=== PATIENT | female | born 1970 | race Caucasian/White ===

== ENCOUNTER 2017-02-22 00:15 | Emergency (ER) | payer SELFPAY ==
[2017-02-22 00:24] VITALS: BP 129/81
--- NOTE | 2017-02-22 01:08 | ER Document Report ---
HPI - HPI Pain Level: 5 - REPRODUCTIVE LMP: na - DERM Skin Color: Normal Past Medical History - Social History Patient has suicidal ideation: No Patient has homicidal ideation: No Renal/ Medical History: Denies: Hx Peritoneal Dialysis Vertical Provider Document - INFECTION CONTROL TRAVEL OUTSIDE OF THE [place] IN LAST 30 DAYS: No - RESPIRATORY O2 Sat by Pulse Oximetry: 99 Course - Vital Signs Vital signs: Temp Pulse Resp BP Pulse Ox 97.7 F 116 H 18 129/81 H 99 02/22/17 00:19 02/22/17 00:19 02/22/17 00:19 02/22/17 00:02/22/17 00:19 - Diagnostic Test Radiology reviewed: Image reviewed, Reports reviewed - Diagnostic report text EXAM DESCRIPTION: KNEE RIGHT 4 VIEWS COMPLETED DATE/TIME: 2016 12:40 am REASON FOR STUDY: knee pain, fell yesterday, hx surgery COMPARISON: None. NUMBER OF VIEWS: Four views. TECHNIQUE: AP, lateral, and both oblique radiographic images acquired of the right knee. An additional sunrise view was obtained. LIMITATIONS: None. FINDINGS: MINERALIZATION: Normal. BONES: No acute fracture or dislocation. No worrisome bone lesions. JOINT: No effusion. SOFT TISSUES: No soft tissue swelling. No radio-opaque foreign body. OTHER: No other significant finding. TECHNICAL DOCUMENTATION: JOB ID: [id number]- All Rights Reserved RAD/KNEE RIGHT 4 VIEWS IMPRESSION: NEGATIVE STUDY OF THE RIGHT KNEE. NO RADIOGRAPHIC EVIDENCE OF ACUTE INJURY
--- NOTE | 2017-02-22 01:14 | ER Document Report ---
HPI - HPI Patient complains to provider of: right knee pain Onset: Yesterday Onset/Duration: Sudden Severity: Severe Pain Level: 5 Context: Patient presents emergency department with complaints of right knee pain. She reports she fell Yesterday onto Both Knees. Patient Reports History of Surgery to the Right Knee 20 Years Ago. Associated Symptoms: None Exacerbated by: Denies Relieved by: Denies Similar symptoms previously: No Recently seen / treated by doctor: No - REPRODUCTIVE LMP: na - DERM Skin Color: Normal <LINDA BULLOCK - Last Filed: 02/22/17 01:20> Past Medical History - General Information source: Patient - Social History Smoking Status: Current Every Day Smoker Cigarette use (# per day): Yes Frequency of alcohol use: None Drug Abuse: None Lives with: Family Family History: None Patient has suicidal ideation: No Patient has homicidal ideation: No Pulmonary Medical History: Reports: Hx Asthma Renal/ Medical History: Denies: Hx Peritoneal Dialysis Past Surgical History: Reports: Hx Orthopedic Surgery <LINDA BULLOCK - Last Filed: 02/22/17 01:20> Vertical Provider Document - CONSTITUTIONAL Agree With Documented VS: Yes Exam Limitations: No Limitations General Appearance: WD/WN, No Apparent Distress - INFECTION CONTROL TRAVEL OUTSIDE OF THE [place] IN LAST 30 DAYS: No - HEENT HEENT: Atraumatic, Normocephalic, PERRLA - NECK Neck: Supple - RESPIRATORY Respiratory: Breath Sounds Normal, No Respiratory Distress O2 Sat by Pulse Oximetry: 99 - MUSCULOSKELETAL/EXTREMETIES Musculoskeletal/Extremeties: MAEW, FROM, Tender - right knee ttp, no obvious deformity, small healing abrasion noted, no open wounds - NEURO Level of Consciousness: Awake, Alert, Appropriate Motor/Sensory: No Motor Deficit - DERM Integumentary: Warm, Dry Adult Front & Back Diagram: 1 - c/o pain <LINDA BULLOCK - Last Filed: 02/22/17 01:20> Course - Vital Signs Vital signs: Temp Pulse Resp BP Pulse Ox 97.7 F 116 H 18 129/81 H 99 02/22/17 00:19 02/22/17 00:19 02/22/17 00:19 02/22/17 00:19 02/22/17 01:14 <AVERY HERNANDEZ - Last Filed: 02/22/17 01:15> - Re-evaluation Re-evalutation: 02/22/17 01:18 Xray negative. [place] controlled substance reporting system reviewed and noted that patient received 120 oxycodone in August from a provider in [place]. I asked patient pmh regarding any recent surgeries or traumas or chronic pain issues and she denied. Male at her side became very irritated and upset when I offered her Motrin and instructed her on ice packs. He stated they would go somewhere else. - Vital Signs Vital signs: Temp Pulse Resp BP Pulse Ox 97.7 F 116 H 18 129/81 H 99 02/22/17 00:19 02/22/17 00:19 02/22/17 00:19 02/22/17 00:19 02/22/17 01:08 <LINDA BULLOCK - Last Filed: 02/22/17 01:20> Discharge <AVERY HERNANDEZ - Last Filed: 02/22/17 01:15> <LINDA BULLOCK - Last Filed: 02/22/17 01:20> - Discharge Clinical Impression: Knee pain, right, Elevated blood pressure reading Condition: Stable Disposition: HOME, SELF-CARE Instructions: Ice & Elevation ([facility]) Additional Instructions: *You have been evaluated for knee pain *Rest/Ice packs to the knee *Follow up with a primary care provider for recheck within one week *Take ibuprofen as indicated *Return to ED for worsening condition, changes, needs Monitor your blood pressure. Your blood pressure was elevated today. This may be because you were anxious, in pain or because you need medication. It is important to follow up with your primary care provider for full evaluation. Forms: Elevated Blood Pressure
== END 2017-02-22 01:18 | disposition home or self-care (01) ==
LOC: ER 00:15
DX: M25.561 Pain in right knee (principal); R03.0 Elevated blood-pressure reading, without diagnosis of hypertension; F17.210 Nicotine dependence, cigarettes, uncomplicated; W18.30XA Fall on same level, unspecified, initial encounter
CPT/HCPCS: 99283

== ENCOUNTER 2017-04-06 09:54 | Emergency (ER) | payer MEDICAID ==
[2017-04-06] MEDS ORDERED: OXYCODONE-ACETAMINOPHEN 5-325 MG TABLET PO ONE (11:21)
[2017-04-06] MEDS ORDERED: ONDANSETRON 4 MG TAB.RAPDIS PO ONE (11:21)
--- NOTE | 2017-04-06 11:52 | ER Document Report ---
HPI - HPI Patient complains to provider of: right sided back pain Onset: Yesterday Onset/Duration: Sudden Quality of pain: Throbbing Severity: Severe Pain Level: 5 Context: Patient states she bent over yesterday to pick something up and began experiencing pain in her right lower back radiating down her right leg. States she has had sciatica before and this feels the same way. She denies loss of control of bowels or bladder. Associated Symptoms: None Exacerbated by: Standing, Movement Relieved by: Denies Similar symptoms previously: Yes Recently seen / treated by doctor: No - ROS ROS below otherwise negative: Yes Systems Reviewed and Negative: Yes All other systems reviewed and negative - CONSTITUTIONAL Constitutional: DENIES: Fever - EENT EENT: DENIES: Congestion - NEURO Neurology: DENIES: Headache - CARDIOVASCULAR Cardiovascular: DENIES: Chest pain - RESPIRATORY Respiratory: DENIES: Trouble Breathing - GASTROINTESTINAL Gastrointestinal: DENIES: Abdominal Pain - URINARY Urinary: DENIES: Dysuria - REPRODUCTIVE LMP: n/a Reproductive: DENIES: : - MUSCULOSKELETAL Musculoskeletal: REPORTS: Back Pain. DENIES: Extremity pain - DERM Skin Color: Normal Skin Problems: None Past Medical History - General Information source: Patient - Social History Smoking Status: Current Every Day Smoker Chew tobacco use (# tins/day): No Frequency of alcohol use: None Drug Abuse: None Lives with: Family Family History: None Pulmonary Medical History: Reports: Hx Asthma Renal/ Medical History: Denies: Hx Peritoneal Dialysis Psychiatric Medical History: Reports: Hx Depression Past Surgical History: Reports: Hx Gynecologic Surgery, Hx Hysterectomy, Hx Orthopedic Surgery - Immunizations Hx Diphtheria, Pertussis, Tetanus Vaccination: No Vertical Provider Document - CONSTITUTIONAL Agree With Documented VS: Yes Exam Limitations: No Limitations General Appearance: WD/WN, No Apparent Distress - INFECTION CONTROL TRAVEL OUTSIDE OF THE [place] IN LAST 30 DAYS: No - HEENT HEENT: Atraumatic, Normocephalic - RESPIRATORY Respiratory: Breath Sounds Normal, No Respiratory Distress O2 Sat by Pulse Oximetry: 99 - CARDIOVASCULAR Cardiovascular: Regular Rate, Regular Rhythm - GI/ABDOMEN Gastrointestinal: Abdomen Soft, Abdomen Non-Tender, Normal Bowel Sounds - BACK Notes: Nontender lumbar spine, but right-sided lumbar paraspinal muscles very tender to touch. Tender over right buttock which causes pain radiation down to right knee. Pain reproduced with light leg raise. No pain with left leg raise. - MUSCULOSKELETAL/EXTREMETIES Musculoskeletal/Extremeties: No Edema - NEURO Level of Consciousness: Awake, Alert, Appropriate - DERM Integumentary: Warm, Dry Course - Vital Signs Vital signs: Temp Pulse Resp BP Pulse Ox 97.9 F 104 H 20 148/112 H 99 04/06/17 10:22 04/06/17 10:22 04/06/17 10:22 04/06/17 10:22 04/06/17 10:22 Discharge - Discharge Clinical Impression: Low back pain with right-sided sciatica Qualifiers: Chronicity: acute Back pain laterality: right Qualified Code(s): M54.41 - Lumbago with sciatica, right side Condition: Good Disposition: HOME, SELF-CARE Instructions: Ice Packs ([facility]), Oral Narcotic Medication ([facility]), Warm Packs ([facility]) , Low Back Pain ([facility]) Additional Instructions: Meds as prescribed Ice or heat packs to back [id number] Motrin 3 times a day Follow-up with your doctor next week for recheck No heavy lifting, rest as much as possible Return as needed Prescriptions: Cyclobenzaprine HCl [Flexeril 5 mg Tablet] 5 mg PO TID #15 tablet Oxycodone HCl/Acetaminophen [Percocet 5-325 mg Tablet] 1 - 2 tab PO ASDIR PRN # 15 tablet PRN Reason:
[2017-04-06 12:19] VITALS: BP 127/96
== END 2017-04-06 12:15 | disposition home or self-care (01) ==
LOC: ER 09:54
DX: M54.41 Lumbago with sciatica, right side (principal); F17.200 Nicotine dependence, unspecified, uncomplicated; J45.909 Unspecified asthma, uncomplicated
CPT/HCPCS: 99283; S0119

== ENCOUNTER 2017-05-05 11:59 | Emergency (ER) | payer MEDICAID ==
[2017-05-05 12:06] VITALS: BP 151/101
[2017-05-05] MEDS ORDERED: OXYCODONE-ACETAMINOPHEN 5-325 MG TABLET PO ONE (12:37)
--- NOTE | 2017-05-05 12:39 | ER Document Report ---
ED Medical Screen (RME) - General Chief Complaint: Abscess Stated Complaint: ABSCESS Time Seen by Provider: 05/05/17 12:33 Mode of Arrival: Ambulatory Information source: Patient Notes: 46-year-old female presents with perianal pain today. She states she has pain while she has a bowel movement. Denies any fever, chills, nausea vomiting. She denies any illnesses. She denies any blood in the stool. Allergies: Naproxen (she states she is taking Aleve), sulfa and Toradol. Medication: Synthroid, atenolol, Prilosec, Protonix Dear physician: Dr. Daly Past medical history: Hypothyroidism, GERD, hypertension, MRSA TRAVEL OUTSIDE OF THE [place] IN LAST 30 DAYS: No - HPI Onset: Yesterday Onset/Duration: Gradual Quality of pain: Dull Severity: Moderate Pain Level: 3 Associated Symptoms: denies: Chills, Fever Exacerbated by: Sitting, Other Relieved by: Standing Similar symptoms previously: No Recently seen / treated by doctor: No - Related Data Smoking: Cigarettes Frequency of alcohol use: None Drug Abuse: None Allergies/Adverse Reactions: ketorolac [From Toradol] Allergy (Verified 05/05/17 12:04) naproxen [From Naprosyn] Allergy (Verified 05/05/17 12:04) Sulfa (Sulfonamide Antibiotics) Allergy (Verified 05/05/17 12:04) Past Medical History - General Information source: Patient - Social History Cigarette use (# per day): Yes - 1ppd Frequency of alcohol use: None Drug Abuse: None Lives with: Spouse/Significant other Family history: None - Past Medical History Cardiac Medical History: Reports: Hx Hypertension Pulmonary Medical History: Reports: Hx Asthma EENT Medical History: Reports: None Neurological Medical History: Reports: None Endocrine Medical History: Reports: None Renal/ Medical History: Reports: None. Denies: Hx Peritoneal Dialysis Psychiatric Medical History: Reports: Hx Depression Past Surgical History: Reports: Hx Gynecologic Surgery, Hx Hysterectomy, Hx Orthopedic Surgery - Immunizations Hx Diphtheria, Pertussis, Tetanus Vaccination: No Review of Systems - Review of Systems Constitutional: denies: Chills, Fever EENT: No symptoms reported Cardiovascular: No symptoms reported Respiratory: No symptoms reported Gastrointestinal: See HPI Genitourinary: No symptoms reported Female Genitourinary: No symptoms reported Musculoskeletal: No symptoms reported Skin: No symptoms reported Hematologic/Lymphatic: No symptoms reported Neurological/Psychological: No symptoms reported Physical Exam - Vital signs Vitals: Temp Pulse Resp BP Pulse Ox 98.4 F 77 16 151/101 H 98 05/05/17 12:04 05/05/17 12:04 05/05/17 12:04 05/05/17 12:04 05/05/17 12:04 Notes: Physical exam: GENERAL: A 6-year-old female, alert and oriented 3, no acute distress nontoxic- appearing HEAD: Atraumatic, normocephalic. EYES: Pupils equal round and reactive to light, extraocular movements intact, sclera anicteric, conjunctiva are normal. ENT: Moist mucous membranes. NECK: Normal range of motion, supple without lymphadenopathy or JVD. LUNGS: Breath sounds clear to auscultation bilaterally and equal. No wheezes rales or rhonchi. HEART: Regular rate and rhythm without murmurs, rubs or gallops. ABDOMEN: Soft, normoactive bowel sounds. No tenderness to palpation. No guarding, no rebound. No masses appreciated. RECTAL: Performed with the triage nurse present: No evidence of perirectal abscesses. No fluctuance, no erythema, no pussy drainage. Patient does have a small, tender hemorrhoid to palpation. There is no fluctuance. It may be thrombosed, but it is small EXTREMITIES: Normal range of motion, no pitting or edema. No clubbing or cyanosis. NEUROLOGICAL: Cranial nerves II through XII grossly intact. Normal speech, normal gait. PSYCH: Normal mood, normal affect. SKIN: Warm, Dry, normal turgor, no rashes or lesions noted. Course - Re-evaluation Re-evalutation: 05/05/17 12:45 Note: At this point, I do not see any evidence of a perirectal abscess. The buttocks is otherwise clear. However, she does have a tender, nonfluctuant hemorrhoid. It is probably a thrombosed hemorrhoid, it does look like it recently drained. It is small. I have offered the patient an incision and drainage but she would like to wait at this time. Given that the lesion is small at this point, I think conservative treatment with follow-up in the surgical clinic in the next week is acceptable plan. She is nontoxic-appearing , is afebrile and has not had any fever or chills. I do not see any evidence of infection at this time. - Vital Signs Vital signs: Temp Pulse Resp BP Pulse Ox 98.4 F 77 16 151/101 H 98 05/05/17 12:04 05/05/17 12:04 05/05/17 12:04 05/05/17 12:04 05/05/17 12:04 Doctor's Discharge - Discharge Clinical Impression: Thrombosed hemorrhoids Condition: Stable Disposition: HOME, SELF-CARE Instructions: Oral Narcotic Medication ([facility]), Hemorrhoids ([facility]) Additional Instructions: Rec: Make sure you take a stool softener to avoid constipation disease constipation will make it worse). Place cool tucks or ice on hemorrhoid several times a day. Pain medicine only when needed. The emergency room for worsening pain, if you start having any fever or chills or any concerns or getting worse. I left the number for the surgical clinic here at the Hospital: Call today and schedule the next available appointment. Tell them you are in the emergency room and the ER doctor wanted to seen within the next week for thrombosed hemorrhoid. Prescriptions: Docusate Sodium [Colace 100 mg Capsule] 100 mg PO DAILY #30 capsule Hydrocortisone Acetate [Anusol Hc 25 mg Supp.rect] 1 supp.rect NC BID #14 supp.rect Oxycodone HCl/Acetaminophen [Percocet 5-325 mg Tablet] 1 - 2 tab PO ASDIR PRN # 15 tablet PRN Reason: Referrals: NATHALY NASH MD [ACTIVE STAFF] - Follow up as needed (The number for the surgery clinic: call Today. tell them you were in the emergency room and the ER doctor wanted to see him in the next week for thrombosed hemorrhoid)
== END 2017-05-05 12:50 | disposition home or self-care (01) ==
LOC: ER 11:59
DX: K64.5 Perianal venous thrombosis (principal); E03.9 Hypothyroidism, unspecified; K21.9 Gastro-esophageal reflux disease without esophagitis; I10 Essential (primary) hypertension; F17.210 Nicotine dependence, cigarettes, uncomplicated
CPT/HCPCS: 99282

== ENCOUNTER 2017-05-16 13:29 | Emergency (ER) | payer MEDICAID ==
[2017-05-16 13:37] VITALS: BP 106/67
--- NOTE | 2017-05-16 14:48 | RADIOLOGY REPORT (SQ) ---
EXAM DESCRIPTION: L SPINE WHOLE COMPLETED DATE/TIME: 05/16/2017 2:36 pm REASON FOR STUDY: Back pain s/p fall COMPARISON: None. NUMBER OF VIEWS: Five views including obliques. TECHNIQUE: AP, lateral, oblique, and sacral radiographic images acquired of the lumbar spine. LIMITATIONS: None. FINDINGS: MINERALIZATION: Normal. SEGMENTATION: Normal. No transitional anatomy. ALIGNMENT: Normal. VERTEBRAE: Maintained height. No fracture or worrisome bone lesion. DISCS: Preserved height. No significant osteophytes or end plate irregularity. POSTERIOR ELEMENTS: Pedicles and facets are intact. No pars defect or posterior arch defects. HARDWARE: None in the spine. PARASPINAL SOFT TISSUES: Normal. PELVIS: Intact as visualized. No fractures or worrisome bone lesions. SI joints intact. OTHER: No other significant finding. IMPRESSION: NORMAL 5 VIEW LUMBAR SPINE. TECHNICAL DOCUMENTATION: JOB ID: [id number] [employer]- All Rights Reserved
--- NOTE | 2017-05-16 14:48 | RADIOLOGY REPORT (SQ) ---
EXAM DESCRIPTION: T SPINE AP/LAT COMPLETED DATE/TIME: 05/16/2017 2:36 pm REASON FOR STUDY: Back pain s/p fall COMPARISON: None. NUMBER OF VIEWS: Two views. TECHNIQUE: AP and lateral radiographic images acquired of the thoracic spine. LIMITATIONS: None. FINDINGS: MINERALIZATION: Normal. ALIGNMENT: Normal. No scoliosis. VERTEBRAE: No fracture or bone lesion. Maintained height, normal segmentation. DISCS: No significant loss of height or significant narrowing. No large osteophytes. HARDWARE: None in the spine. MEDIASTINUM AND SOFT TISSUES: Normal heart size and aortic contour. No soft tissue abnormality. VISUALIZED LUNG PEARSON: Clear. OTHER: No other significant finding. IMPRESSION: NO SIGNIFICANT RADIOGRAPHIC FINDING IN THE THORACIC SPINE. TECHNICAL DOCUMENTATION: JOB ID: [id number] [employer]- All Rights Reserved
[2017-05-16] MEDS ORDERED: LIDOCAINE 5% (700 MG) TRANSDERMAL ADH..PATCH TP ONE (14:52)
--- NOTE | 2017-05-16 15:00 | ER Document Report ---
HPI - HPI Pain Level: 2 Notes: Patient is a 46-year-old female presents to the ED complaining of thoracic and low back pain status post fall yesterday. Pt arrived by EMS. Patient states that her leg slipped out from under her and she fell on her butt on the sidewalk. Denies any head/neck injury. Patient states that she has been having low back pain and pain into her bilateral lower extremities since then. She does have a history of sciatica. Patient states the pain feels like spasming. Patient also being treated for hypothyroid, bipolar, depression/ anxiety and schizoaffective disorder. Patient states that she has been unable to sit still. There is no one position that helps her pain, and being in one position too long worsens the pain. Patient still eating drink without any problems. Denies any loss of control of bowel/bladder. Denies any fever, headaches, URI, sore throat, chest pains, palpitation, syncope, cough, wheeze, shortness of breath, dyspnea, abdominal pain, nausea/vomiting, melena, hematochezia, dysuria, urinary retention, hematuria, focal muscle weakness/ paralysis, rash, or seizure. No history of diabetes or IV drug use. - ROS Notes: REVIEW OF SYSTEMS: CONSTITUTIONAL : Denies fever, chills, or sweats. Denies recent illness. EENT: Denies eye, ear, throat, or mouth pain or symptoms. Denies nasal or sinus congestion or discharge. Denies throat, tongue, or mouth swelling or difficulty swallowing. CARDIOVASCULAR: Denies chest pain. Denies palpitations or racing or irregular heart beat. Denies ankle edema. RESPIRATORY: Denies cough, cold, or chest congestion. Denies shortness of breath, difficulty breathing, or wheezing. GASTROINTESTINAL: Denies abdominal pain or distention. Denies nausea, vomiting , or diarrhea. Denies blood in vomitus, stools, or per rectum. Denies black, tarry stools. Denies constipation. GENITOURINARY: Denies difficulty urinating, painful urination, burning, frequency, blood in urine, or discharge. MUSCULOSKELETAL: see hpi SKIN: Denies rash, lesions or sores. NEUROLOGICAL: Denies confusion or altered mental status. Denies passing out or loss of consciousness. Denies dizziness or lightheadedness. Denies headache. Denies weakness or paralysis or loss of use of either side. Denies problems with gait or speech. Denies sensory loss, numbness, or tingling. Denies seizures. ALL OTHER SYSTEMS REVIEWED AND NEGATIVE. Dictation was performed using [employer] voice recognition software - CARDIOVASCULAR Cardiovascular: DENIES: Chest pain - REPRODUCTIVE Reproductive: DENIES: : - DERM Skin Color: Normal Past Medical History - Social History Smoking Status: Current Every Day Smoker Chew tobacco use (# tins/day): No Frequency of alcohol use: None Drug Abuse: None Family History: None Patient has suicidal ideation: No Patient has homicidal ideation: No - Past Medical History Cardiac Medical History: Reports: Hx Hypertension Pulmonary Medical History: Reports: Hx Asthma Renal/ Medical History: Denies: Hx Peritoneal Dialysis GI Medical History: Reports: Hx Ulcer - x 2 Psychiatric Medical History: Reports: Hx Bipolar Disorder, Hx Depression Past Surgical History: Reports: Hx Gynecologic Surgery, Hx Hysterectomy, Hx Orthopedic Surgery, Hx Urinary Tract Surgery - bladder stimulator insert & removal, mesh - Immunizations Hx Diphtheria, Pertussis, Tetanus Vaccination: No Vertical Provider Document - CONSTITUTIONAL Notes: PHYSICAL EXAMINATION: GENERAL: Well-appearing, well-nourished and in no acute distress. Pt able to lie, sit with legs straight and bent without difficulty. HEAD: Atraumatic, normocephalic. NECK: Normal range of motion, supple without lymphadenopathy. No rigidity. LUNGS: Breath sounds clear to auscultation bilaterally and equal. No wheezes rales or rhonchi. HEART: Regular rate and rhythm without murmurs, rubs, gallops. ABDOMEN: Soft, nontender, nondistended abdomen. No guarding, no rebound. No masses appreciated. Normal bowel sounds present. No CVA tenderness bilaterally. Sphincter tone intact. Musculoskeletal: FROM to passive/active to LE's b/l. Strength 5+/5. SLR negative to the left, mildly positive near total extension at the knee. Back: No evidence of trauma with any abrasion, laceration, deformity, or ecchymosis noted. + tenderness to the thoracic spine near T-7-10 on the rt side along with L-spine tenderness. Extremities: No cyanosis, clubbing, or edema b/l. Peripheral pulses 2+. Capillary refill less than 3 seconds. NEUROLOGICAL: Cranial nerves grossly intact. Normal speech, normal gait. Normal sensory, motor exams. 1+ reflexes b/l to LE's. PSYCH: Normal mood, normal affect. SKIN: Warm, Dry, normal turgor, no rashes or lesions noted. - INFECTION CONTROL TRAVEL OUTSIDE OF THE [place] IN LAST 30 DAYS: No - RESPIRATORY O2 Sat by Pulse Oximetry: 100 Course - Re-evaluation Re-evalutation: 05/16/17 15:03 Patient is an afebrile, well-hydrated, 46-year-old female who presents to the ED complaining of thoracic and low back pain status post fall on her buttocks yesterday, suspect soft tissue pain. Vitals are stable. PE is otherwise unremarkable for any signs of acute trauma. T-spine and L-spine x-rays were unremarkable for any acute fracture or dislocation. Patient is noted to be allergic to Toradol and naproxen. Lidoderm applied topically today. I will send her home with a steroid tapering dose. Recommend conservative measures for symptoms. Recheck with her PCM in 2-3 days. Consider consult with orthopedics, chiropractors, physical therapy as well. Return to the ED with any worsening/concerning symptoms otherwise as needed. Low suspicion for any expanding or ruptured abdominal aortic aneurysm, cauda equina syndrome, epidural mass lesion, or herniated disc causing severe spinal stenosis based on work up. Upon further evaluation of patient as she was crying and stating that she wants the spasming to go away in her legs (no spasming was noted during the entire exam, nor by palpation during an episode she described), and that I did not fix her problem, I offered patient a muscle relaxer to which she says, "I have xanaflex at home" and begins to walk out. I tried to question further asking if she is looking for more of a pain medication and she stated, "no," and continued to gather her things to walk out. I then told her I could have Dr. Murray evaluate her to see what else we can do, and patient declined then walked out of the room/office. Her ambulation was without any limping or favoring like she was in discomfort upon discharge. Pt was also seen to be in several positions on the bed calm and comfortable until someone walks in the room. - Vital Signs Vital signs: Temp Pulse Resp BP Pulse Ox 97.8 F 76 18 106/67 100 05/16/17 13:37 05/16/17 13:37 05/16/17 13:37 05/16/17 13:37 05/16/17 13:37 Discharge - Discharge Clinical Impression: Back pain Qualifiers: Back pain location: back pain in unspecified location Chronicity: acute Back pain laterality: unspecified Qualified Code(s): M54.9 - Dorsalgia, unspecified Condition: Stable Disposition: HOME, SELF-CARE Instructions: Ice Packs ([facility]), Low Back Pain ([facility]), Warm Packs ([facility]) Additional Instructions: Rest, Ice, Compression, Elevation Tylenol as needed Take medication as directed Light stretches daily Strength exercises as able Moist heat and massage may help F/u with your PCP in 2-3 days for a recheck Consider consult(s) with Orthopedics, physical therapy, chiropractics, pain management for ongoing/worsening symptoms Return to the ED with any worsening symptoms and/or development of fever, headache, chest pain, palpitations, syncope, shortness of breath, trouble breathing, abdominal pain, n/v/d, blood in stool/urine, urinary retention, muscle weakness/paralysis, or other worsening symptoms that are concerning to you. Prescriptions: Prednisone [Deltasone 10 mg Tablet] 10 mg PO ASDIR PRN #21 tablet PRN Reason: Referrals: ZACHERY FAIRCHILD MD [Primary Care Provider] - Follow up as needed [facility] [Provider Group] - Follow up as needed
== END 2017-05-16 15:27 | disposition home or self-care (01) ==
LOC: ER 13:29
DX: M54.6 Pain in thoracic spine (principal); M54.5 Low back pain; W01.0XXA Fall on same level from slipping, tripping and stumbling without subsequent striking against object, initial encounter; Y92.480 Sidewalk as the place of occurrence of the external cause; E03.9 Hypothyroidism, unspecified; F31.9 Bipolar disorder, unspecified; F25.9 Schizoaffective disorder, unspecified; F41.9 Anxiety disorder, unspecified; F17.200 Nicotine dependence, unspecified, uncomplicated; I10 Essential (primary) hypertension; J45.909 Unspecified asthma, uncomplicated; Z88.8 Allergy status to other drugs, medicaments and biological substances; Z53.20 Procedure and treatment not carried out because of patient's decision for unspecified reasons
CPT/HCPCS: 99283; 72110; 72070; J3490

== ENCOUNTER 2017-06-17 15:07 | Emergency (ER) | payer MEDICAID ==
--- NOTE | 2017-06-17 15:33 | ER Document Report ---
ED Psych Disorder / Suicide - General Chief Complaint: Possible Overdose Stated Complaint: POSSIBLE OVERDOSE Time Seen by Provider: 06/17/17 15:27 Mode of Arrival: Medic Information source: Patient Notes: 46-year-old smoker female with history of depression took a handful of her medications because she was trying to kill herself. She stated that she did not want to do this anymore, she did not want help from us, she is tired of hurting. She has attempted suicide 2 times in the past last of which was 4 years ago. She has a history of hypertension chronic back pain. Her son's girlfriend called EMS and she refused charcoal en route. Her medications were filled May 20 and is not sure how many she took of each medication. Is willing for us to draw blood get urine in have psych talk to her. I will have the physician sign the IVC papers as she is a danger to herself. TRAVEL OUTSIDE OF THE [place] IN LAST 30 DAYS: No - Related Data Allergies/Adverse Reactions: ketorolac [From Toradol] Allergy (Verified 05/16/17 13:33) naproxen [From Naprosyn] Allergy (Verified 05/16/17 13:33) Sulfa (Sulfonamide Antibiotics) Allergy (Verified 05/16/17 13:33) Past Medical History - General Information source: Patient - Social History Smoking Status: Current Every Day Smoker Frequency of alcohol use: None Drug Abuse: None Lives with: Family Family History: None - Medical History Notes: hypothyroid - Past Medical History Cardiac Medical History: Reports: Hx Hypertension Pulmonary Medical History: Reports: Hx Asthma Renal/ Medical History: Denies: Hx Peritoneal Dialysis GI Medical History: Reports: Hx Ulcer - x 2 Psychiatric Medical History: Reports: Hx Bipolar Disorder, Hx Depression Past Surgical History: Reports: Hx Hysterectomy, Hx Orthopedic Surgery, Hx Urinary Tract Surgery - bladder stimulator insert & removal, mesh - Immunizations Hx Diphtheria, Pertussis, Tetanus Vaccination: No Review of Systems - Review of Systems Constitutional: No symptoms reported EENT: No symptoms reported Cardiovascular: No symptoms reported Respiratory: No symptoms reported Gastrointestinal: No symptoms reported Genitourinary: No symptoms reported Female Genitourinary: No symptoms reported Musculoskeletal: No symptoms reported Skin: No symptoms reported Hematologic/Lymphatic: No symptoms reported Neurological/Psychological: See HPI Physical Exam - Vital signs Vitals: Temp Pulse Resp BP Pulse Ox 98.1 F 64 16 123/59 L 97 06/17/17 17:32 06/17/17 17:32 06/17/17 17:32 06/17/17 17:32 06/17/17 17:32 Interpretation: Normal - General General appearance: Alert, Other - tearful Notes: avoids eye contact, withdrawn, frustrated - HEENT Head: Normocephalic, Atraumatic Eyes: Normal Conjunctiva: Normal Pupils: PERRL - Respiratory Respiratory status: No respiratory distress Chest status: Nontender Breath sounds: Normal Chest palpation: Normal - Cardiovascular Rhythm: Regular Heart sounds: Normal auscultation Murmur: No - Abdominal Inspection: Normal Distension: No distension Bowel sounds: Normal Tenderness: Nontender. No: Tender Organomegaly: No organomegaly - Back Back: Normal, Nontender. No: CVA tenderness - Extremities General upper extremity: Normal inspection, Nontender, Normal color, Normal ROM , Normal temperature General lower extremity: Normal inspection, Nontender, Normal color, Normal ROM , Normal temperature, Normal weight bearing. No: Debo's sign - Neurological Neuro grossly intact: Yes Cognition: Normal Orientation: AAOx4 [place] Coma Scale Eye Opening: Spontaneous [place] Coma Scale Verbal: Oriented [place] Coma Scale Motor: Obeys Commands [place] Coma Scale Total: 15 Speech: Normal Motor strength normal: LUE, RUE, LLE, RLE Sensory: Normal - Psychological Associated symptoms: Angry, Depressed, Flat affect, Tearful - Skin Skin Temperature: Warm Skin Moisture: Dry Skin Color: Normal Course - Re-evaluation Re-evalutation: 06/17/17 15:47 pt was being watched in the bathroom for the urine speciman and she threw the gown at the nurse, put water in the cup and ran out of the ER. Since I was IVC' ing her, [facility] has been notified to get the pt. The medications she took were the following: Lyrica, omeprazole, fetzima, colace, pantaprozole, levothyroxine, tizanidine, loratadine, diphenhydramine, ibuproefen, acetominophen. will call poisen control 06/17/17 16:10 called po[facility] control, wants acetominophen repeat at 7 pm, monitor for hypotension, bradycardia, vomiting, drowsy, monitor for 4-6 hours. 06/17/17 18:34 pt is asleep, restraints not needed, vitals done at 5:30 pm are stable. 06/17/17 18:56 dr cody wants me to order haldol 5 mg IM, clonidine 0.1mg TD, zofran 8 mg ODT. Pt admits to cocaine 2 days ago and buying her pain medication off the street. Pt agitated, pulling curtains, hollering "I haven't done anything", "My is going to take my daughter" " call the law up here". needs restraints again, started to go for security. 06/17/17 19:05 Care transferred to Tan QUIJANO. - Vital Signs Vital signs: Temp Pulse Resp BP Pulse Ox 97.6 F 74 20 169/85 H 100 06/17/17 19:12 06/17/17 19:12 06/17/17 19:12 06/17/17 19:12 06/17/17 19:12 - Laboratory Result Diagrams: 06/17/17 16:55 06/17/17 16:55 Laboratory results interpreted by me: 06/17/17 06/17/17 16:55 16:55 WBC 11.1 H MCH 26.6 L RDW 16.6 H Chloride 108 H Salicylates < 1.0 L Acetaminophen < 10 L - EKG Interpretation by Me EKG shows normal: Sinus rhythm Rate: Normal Rhythm: NSR - Transfer of Care Care transferred to following provider: I friant at 19:10 Discharge - Discharge Clinical Impression: Polysubstance abuse, sucidal gesture Condition: Good Disposition: PSYCH HOSP/UNIT Referrals: ZACHERY FAIRCHILD MD [Primary Care Provider] - Follow up as needed
[2017-06-17 17:16] LABS: ABSOLUTE BASOPHILS # (AUTO) 0.1 10^3/uL (0.0-0.2); ABSOLUTE EOSINOPHILS # (AUTO) 0.3 10^3/uL (0.0-0.6); ABSOLUTE LYMPHOCYTES (AUTO) 1.9 10^3/uL (0.5-4.7); ABSOLUTE MONOCYTES (AUTO) 0.8 10^3/uL (0.1-1.4); ABSOLUTE NEUT (AUTO) 8.1 10^3/uL (1.7-8.2); BASOPHILS % (AUTO) 0.6 % (0-2); EOSINOPHILS % (AUTO) 2.6 % (0-6); HEMATOCRIT 39.1 % (36.0-47.0); HEMOGLOBIN 12.6 g/dL (12.0-15.5); HGB HCT DIFFERENCE -1.3; LYMPHOCYTES % (AUTO) 16.9 % (13-45); MEAN CORPUSCULAR HEMOGLOBIN 26.6 pg (27.0-33.4); MEAN CORPUSCULAR HGB CONC 32.3 g/dL (32.0-36.0); MEAN CORPUSCULAR VOLUME 82 fl (80-97); MONOCYTES % (AUTO) 6.8 % (3-13); RED BLOOD COUNT 4.75 10^6/uL (3.72-5.28); RED CELL DISTRIBUTION WIDTH 16.6 % (11.5-14.0); SEGMENTED NEUTROPHILS % (AUTO) 73.1 % (42-78); WHITE BLOOD COUNT 11.1 10^3/uL (4.0-10.5)
[2017-06-17 17:38] LABS: ALANINE AMINOTRANSFERASE 20 U/L (9-52); ALBUMIN 4.2 g/dL (3.5-5.0); ALCOHOL < 10 mg/dL (NONE DETECTED); ALKALINE PHOSPHATASE 78 U/L (38-126); ANION GAP 10 (5-19); ASPARTATE AMINO TRANSFERASE 17 U/L (14-36); BILIRUBIN,DIRECT 0.3 mg/dL (0.0-0.4); BILIRUBIN,TOTAL 0.5 mg/dL (0.2-1.3); BLOOD UREA NITROGEN 9 mg/dL (7-20); CALCIUM 9.8 mg/dL (8.4-10.2); CARBON DIOXIDE 25 mmol/L (22-30); CHLORIDE 108 mmol/L (98-107); CREATININE RESULT 0.87 mg/dL (0.52-1.25); GLUCOSE 85 mg/dL (75-110); SODIUM 142.8 mmol/L (137-145); TOTAL PROTEIN 7.2 g/dL (6.3-8.2)
[2017-06-17] MEDS ORDERED: HALOPERIDOL LACTATE INJ 5 MG/1 ML VIAL IM ONE (18:55)
[2017-06-17] MEDS ORDERED: IBUPROFEN 800 MG TABLET PO ONE (18:55)
[2017-06-17] MEDS ORDERED: CLONIDINE 0.1 MG/24 HR PATCH.TDWK TD ONE (18:55)
[2017-06-17] MEDS ORDERED: ONDANSETRON 4 MG TAB.RAPDIS PO ONE (18:56)
--- NOTE | 2017-06-17 19:18 | EKG REPORT ---
SEVERITY:- DEFECTIVE ECG - SINUS RHYTHM : Confirmed by: Beck Emery MD 17-Jun-2017 19:18:11
[2017-06-17] MEDS ORDERED: ZIPRASIDONE MESYLATE INJ/PF 20 MG SDV IM ONE (19:40)
[2017-06-17] MEDS ORDERED: OLANZAPINE INJ/PF 10 MG SDV IM ONE (19:44)
[2017-06-17 23:39] LABS: APPEARANCE,URINE CLEAR; BILIRUBIN,URINE NEGATIVE (NEGATIVE); GLUCOSE, URINE NEGATIVE (NEGATIVE); KETONES,URINE TRACE mg/dL (NEGATIVE); LEUKOCYTE ESTERASE,URINE NEGATIVE (NEGATIVE); NITRITE,URINE NEGATIVE (NEGATIVE); PROTEIN,URINE NEGATIVE (NEGATIVE); URINE SPECIFIC GRAVITY 1.006; UROBILINOGEN,URINE NEGATIVE mg/dL (<2.0)
[2017-06-17 23:51] LABS: URINE BARBITURATES SCREEN NEGATIVE; URINE METHADONE SCREEN NEGATIVE; URINE OPIATES LOW UNCONFIRMED POSITIVE; URINE PHENCYCLIDINE SCREEN NEGATIVE
[2017-06-18] MEDS ORDERED: DIPHENHYDRAMINE HCL 50 MG/ML VIAL IM ONE (03:46)
--- NOTE | 2017-06-18 09:41 | ER Document Report ---
Doctor's Note Notes: 06/18/17 09:39 This is a 46-year-old female with a history of asthma, hypertension (followed by Dr. Daly), history of bipolar affective disorder, schizoaffective disorder ( followed by [facility]) who was brought into the emergency room by EMS with marked agitation in the setting of overdose and suicidal ideations last night. Patient lives with her , 26-year-old son and his son's girlfriend and a 4 -year-old daughter which she is caring for. The patient states she had gotten into an argument with her And had taken some pills. Records show that the patient was markedly agitated requiring sedation in the emergency room last night. On physical exam, On physical exam, the patient is sleeping but easily arousable. She denies any suicidal ideations and states she feels better at this time. Her vital signs have been stable. I reviewed the patient's labs and they have been stable. We will continue to observe as per the recommendations by poison control. Also, awaiting psychiatric evaluation.
[2017-06-18 14:41] VITALS: BP 103/76
--- NOTE | 2017-06-21 17:52 | EKG REPORT ---
SEVERITY:- BORDERLINE ECG - SINUS RHYTHM BORDERLINE T ABNORMALITIES, ANT-LAT LEADS : Confirmed by: Ori Hill 21-Jun-2017 17:52:36
== END 2017-06-18 14:35 | disposition home or self-care (01) ==
LOC: ER 15:07
DX: T50.901A Poisoning by unspecified drugs, medicaments and biological substances, accidental (unintentional), initial encounter (principal); J45.909 Unspecified asthma, uncomplicated; I10 Essential (primary) hypertension; F31.9 Bipolar disorder, unspecified; F25.9 Schizoaffective disorder, unspecified
CPT/HCPCS: 93005 ×2; 99285; 96372; 96374; 36415; 80307 ×4; 84703; 85025; 80053; 81001; 93010 ×2; J1200; S0119; J1630; J3490

== ENCOUNTER 2017-09-01 11:45 | Emergency (ER) | payer MEDICAID ==
--- NOTE | 2017-09-01 12:13 | ER Document Report ---
HPI - HPI Patient complains to provider of: dental pain Pain Level: 5 Context: 47 yo female c/o pain to left upper gum x 2-3 days. scheduled to see dentist next week Of note: pt was seen in ED approx 2 mos ago for polysubstance abuse and suicidal gesture. Pt's drug screen was positive for opiates, amphetamine, THC and cocaine. pt denies any drug use today. Associated Symptoms: None Exacerbated by: Denies Relieved by: Denies Similar symptoms previously: Yes Recently seen / treated by doctor: Yes - ROS Systems Reviewed and Negative: Yes All other systems reviewed and negative - REPRODUCTIVE Reproductive: DENIES: : - DERM Skin Color: Normal Past Medical History - General Information source: Patient - Social History Smoking Status: Current Every Day Smoker Frequency of alcohol use: None Drug Abuse: None Occupation: disabled Lives with: Alone Family History: None Patient has suicidal ideation: No Patient has homicidal ideation: No - Past Medical History Cardiac Medical History: Reports: Hx Hypertension Pulmonary Medical History: Reports: Hx Asthma Renal/ Medical History: Denies: Hx Peritoneal Dialysis GI Medical History: Reports: Hx Ulcer - x 2 Psychiatric Medical History: Reports: Hx Bipolar Disorder, Hx Depression Past Surgical History: Reports: Hx Hysterectomy, Hx Orthopedic Surgery, Hx Urinary Tract Surgery - bladder stimulator insert & removal, mesh - Immunizations Hx Diphtheria, Pertussis, Tetanus Vaccination: No Vertical Provider Document - CONSTITUTIONAL Agree With Documented VS: Yes Exam Limitations: No Limitations - INFECTION CONTROL TRAVEL OUTSIDE OF THE [place] IN LAST 30 DAYS: No - HEENT HEENT: Atraumatic, PERRLA Mouth Diagram: 1 - pain and swelling to gum. pt is edentulous except 2 front decayed front teeth - NECK Neck: Normal Inspection, Supple - RESPIRATORY Respiratory: Breath Sounds Normal, No Respiratory Distress O2 Sat by Pulse Oximetry: 100 - CARDIOVASCULAR Cardiovascular: Regular Rate, Regular Rhythm Course - Re-evaluation Re-evalutation: 09/01/17 12:19 no s/s ludwigs angina, peritonsillar abscess. no airway compromise. pt is afebrile and nontoxic. will treat with antiotics and topical lidocaine. due to pt's recent hx/o polysubstance abuse, no naracotic medication prescribed 09/01/17 12:22 - Vital Signs Vital signs: Temp Pulse Resp BP Pulse Ox 98.6 F 110 H 18 146/89 H 100 09/01/17 11:49 09/01/17 11:49 09/01/17 11:49 09/01/17 11:49 09/01/17 11:49 Discharge - Discharge Clinical Impression: Pain, dental Condition: Stable Disposition: HOME, SELF-CARE Instructions: Penicillin V K ([facility]) Additional Instructions: apply topical lidocaine to gum and painful tooth take antibiotic as prescribed follow up with dental as scheduled Prescriptions: Penicillin V Potassium [Penicillin Vk 500 mg Tablet] 500 mg PO BID #20 tablet Forms: Elevated Blood Pressure
[2017-09-01] MEDS ORDERED: LIDOCAINE 2% VISCOUS SOLN 20 ML UDCUP PO ONE (12:22)
[2017-09-01 12:24] VITALS: BP 146/89
== END 2017-09-01 12:39 | disposition home or self-care (01) ==
LOC: ER 11:45
DX: K08.89 Other specified disorders of teeth and supporting structures (principal); F17.200 Nicotine dependence, unspecified, uncomplicated; F15.90 Other stimulant use, unspecified, uncomplicated; F12.90 Cannabis use, unspecified, uncomplicated; F14.90 Cocaine use, unspecified, uncomplicated; F11.90 Opioid use, unspecified, uncomplicated
CPT/HCPCS: 99282

== ENCOUNTER → 2017-10-11 | Outpatient (CLI) | payer MEDICAID ==
[2017-10-13 19:03] LABS: ABSOLUTE BASOPHILS # (AUTO) 0.1 10^3/uL (0.0-0.2); ABSOLUTE EOSINOPHILS # (AUTO) 0.3 10^3/uL (0.0-0.6); ABSOLUTE LYMPHOCYTES (AUTO) 3.1 10^3/uL (0.5-4.7); ABSOLUTE MONOCYTES (AUTO) 0.6 10^3/uL (0.1-1.4); ABSOLUTE NEUT (AUTO) 5.1 10^3/uL (1.7-8.2); BASOPHILS % (AUTO) 0.8 % (0-2); EOSINOPHILS % (AUTO) 3.1 % (0-6); HEMATOCRIT 37.1 % (36.0-47.0); HEMOGLOBIN 12.1 g/dL (12.0-15.5); HGB HCT DIFFERENCE -0.8; LYMPHOCYTES % (AUTO) 33.7 % (13-45); MEAN CORPUSCULAR HEMOGLOBIN 27.4 pg (27.0-33.4); MEAN CORPUSCULAR HGB CONC 32.7 g/dL (32.0-36.0); MEAN CORPUSCULAR VOLUME 84 fl (80-97); MONOCYTES % (AUTO) 6.5 % (3-13); RED BLOOD COUNT 4.43 10^6/uL (3.72-5.28); RED CELL DISTRIBUTION WIDTH 17.9 % (11.5-14.0); SEGMENTED NEUTROPHILS % (AUTO) 55.9 % (42-78); WHITE BLOOD COUNT 9.2 10^3/uL (4.0-10.5)
[2017-10-13 19:21] LABS: ALANINE AMINOTRANSFERASE 20 U/L (9-52); ALBUMIN 4.3 g/dL (3.5-5.0); ALKALINE PHOSPHATASE 74 U/L (38-126); ANION GAP 13 (5-19); ASPARTATE AMINO TRANSFERASE 25 U/L (14-36); BILIRUBIN,DIRECT 0.4 mg/dL (0.0-0.4); BILIRUBIN,TOTAL 0.5 mg/dL (0.2-1.3); BLOOD UREA NITROGEN 7 mg/dL (7-20); CALCIUM 9.8 mg/dL (8.4-10.2); CARBON DIOXIDE 25 mmol/L (22-30); CHLORIDE 107 mmol/L (98-107); CREATININE RESULT 0.72 mg/dL (0.52-1.25); GLUCOSE 77 mg/dL (75-110); POTASSIUM 3.8 mmol/L (3.6-5.0); SODIUM 144.9 mmol/L (137-145)
== END ==
LOC: OD 17:26
PROVIDERS: ATTEND Physician Assistant
DX: Z11.2 Encounter for screening for other bacterial diseases (principal)
CPT/HCPCS: 36415; 80053; 85025

== ENCOUNTER 2017-11-20 13:52 | Emergency (ER) | payer MEDICAID ==
--- NOTE | 2017-11-20 15:22 | ER Document Report ---
ED Medical Screen (RME) - General Chief Complaint: Facial Swelling Stated Complaint: LIP SWELLING Time Seen by Provider: 11/20/17 15:18 Mode of Arrival: Ambulatory Information source: Patient Notes: Pt presents to the ER today for swelling to her right upper lip and a bump inside her lip. Pt denies fever/chills. She does have a history of MRSA. denies trouble breathing. TRAVEL OUTSIDE OF THE [place] IN LAST 30 DAYS: No - Related Data Allergies/Adverse Reactions: ketorolac [From Toradol] Allergy (Verified 11/20/17 13:54) naproxen [From Naprosyn] Allergy (Verified 11/20/17 13:54) Sulfa (Sulfonamide Antibiotics) Allergy (Verified 11/20/17 13:54) Past Medical History - General Information source: Patient - Social History Family history: None - Past Medical History Cardiac Medical History: Reports: Hx Hypertension Pulmonary Medical History: Reports: Hx Asthma Renal/ Medical History: Denies: Hx Peritoneal Dialysis GI Medical History: Reports: Hx Ulcer - x 2 Psychiatric Medical History: Reports: Hx Bipolar Disorder, Hx Depression Past Surgical History: Reports: Hx Hysterectomy, Hx Orthopedic Surgery, Hx Urinary Tract Surgery - bladder stimulator insert & removal, mesh - Immunizations Hx Diphtheria, Pertussis, Tetanus Vaccination: No Review of Systems - Review of Systems EENT: See HPI Physical Exam - Vital signs Vitals: Temp Pulse Resp BP Pulse Ox 98.1 F 71 14 135/87 H 98 11/20/17 14:07 11/20/17 14:07 11/20/17 14:07 11/20/17 14:07 11/20/17 14:07 - Notes Notes: General: NAD ENT: edema right upper lip, bump on the inside, airway patent Course - Vital Signs Vital signs: Temp Pulse Resp BP Pulse Ox 98.1 F 71 14 135/87 H 98 11/20/17 14:07 11/20/17 14:07 11/20/17 14:07 11/20/17 14:07 11/20/17 14:07
[2017-11-20] MEDS ORDERED: CLINDAMYCIN HCL 150 MG CAPSULE PO ONE (16:24)
[2017-11-20] MEDS ORDERED: OXYCODONE-ACETAMINOPHEN 5-325 MG TABLET PO ONE (16:24)
--- NOTE | 2017-11-20 16:30 | ER Document Report ---
ED General - General Chief Complaint: Facial Swelling Stated Complaint: LIP SWELLING Time Seen by Provider: 11/20/17 15:18 Mode of Arrival: Ambulatory Information source: Patient Notes: This is a 47-year-old female with a history of hypertension, hypothyroidism and MRSA skin infections. The patient presents to the emergency room with a tender area just above the upper lip on the right side by the corner of her mouth. She is concerned about MRSA. Her symptoms started last night (within the past 12 hours). She does have tenderness. She denies fever. TRAVEL OUTSIDE OF THE [place] IN LAST 30 DAYS: No - HPI Onset: Other - Last night Onset/Duration: Gradual Quality of pain: Dull Severity: Mild Pain Level: 1 Associated symptoms: Other - No headache, no neck stiffness, no eye pain. denies: Chest pain, Fever, Shortness of breath Exacerbated by: Denies Relieved by: Denies Similar symptoms previously: No Recently seen / treated by doctor: No - Related Data Allergies/Adverse Reactions: ketorolac [From Toradol] Allergy (Verified 11/20/17 13:54) naproxen [From Naprosyn] Allergy (Verified 11/20/17 13:54) Sulfa (Sulfonamide Antibiotics) Allergy (Verified 11/20/17 13:54) Past Medical History - General Information source: Patient - Social History Smoking Status: Current Every Day Smoker Cigarette use (# per day): Yes - Half pack per day Chew tobacco use (# tins/day): No Frequency of alcohol use: None Drug Abuse: None Lives with: Family Family History: None Patient has suicidal ideation: No Patient has homicidal ideation: No - Past Medical History Cardiac Medical History: Reports: Hx Hypertension Pulmonary Medical History: Reports: Hx Asthma Renal/ Medical History: Denies: Hx Peritoneal Dialysis GI Medical History: Reports: Hx Ulcer - x 2 Psychiatric Medical History: Reports: Hx Bipolar Disorder, Hx Depression Past Surgical History: Reports: Hx Hysterectomy, Hx Orthopedic Surgery, Hx Urinary Tract Surgery - bladder stimulator insert & removal, mesh - Immunizations Hx Diphtheria, Pertussis, Tetanus Vaccination: No Review of Systems - Review of Systems Constitutional: denies: Chills, Fever EENT: See HPI Cardiovascular: No symptoms reported Respiratory: No symptoms reported Gastrointestinal: No symptoms reported Genitourinary: No symptoms reported Female Genitourinary: No symptoms reported Musculoskeletal: No symptoms reported Skin: No symptoms reported Hematologic/Lymphatic: No symptoms reported Neurological/Psychological: No symptoms reported Physical Exam - Vital signs Vitals: Temp Pulse Resp BP Pulse Ox 98.1 F 71 14 135/87 H 98 11/20/17 14:07 11/20/17 14:07 11/20/17 14:07 11/20/17 14:07 11/20/17 14:07 Notes: Physical exam: GENERAL: 47-year-old female, alert and oriented 3, no acute distress HEAD: Atraumatic, normocephalic. EYES: Pupils equal round and reactive to light, extraocular movements intact, sclera anicteric, conjunctiva are normal. Face: Patient does have tender area which is indurated just above the upper lip on the right side near the corner of her mouth. There is no obvious fluctuation , but there is definitely tenderness and induration. The area has some mild erythema around it. There is no erythema extending to the corner of the eye. There is no tenderness with extraocular muscles. There is no tenderness or erythema along the nose. NECK: Normal range of motion, supple without obvious mass or JVD. LUNGS: Breath sounds clear to auscultation bilaterally and equal. No wheezes rales or rhonchi. HEART: No murmurs appreciated. NEUROLOGICAL: Cranial nerves II through XII grossly intact. Normal speech, moving all extremities. PSYCH: Normal mood, normal affect. SKIN: As mentioned above under the face exam Course - Re-evaluation Re-evalutation: 11/20/17 16:27 Note: This patient does have a history of MRSA and the concern today is skin infection. There is no evidence of sepsis. The patient looks relatively good. There is a small area of induration but no obvious fluctuance either on the outside or inside of the mouth. I think she may be developing an abscess. I have offered her dose of IV antibiotics as well as an attempted I&D (it is not really fluctuant at this point, I am not sure how much yield this would yield at this time). She however states that her 4-year-old daughter is with her mother right now and she does not want to stay. She is asking for some oral antibiotic. I have given her good instructions to come back if the swelling increases or if there is any erythema tracking up towards her eye. - Vital Signs Vital signs: Temp Pulse Resp BP Pulse Ox 98.1 F 73 18 130/80 H 98 11/20/17 14:07 11/20/17 16:38 11/20/17 16:38 11/20/17 16:38 11/20/17 16:38 Discharge - Discharge Clinical Impression: Facial cellulitis early Condition: Stable Disposition: HOME, SELF-CARE Additional Instructions: Recommendations: As we discussed, I would like you to use warm packs to the outside of the face. Take the antibiotics as prescribed. Take the pain medicine as needed. Return to the emergency room for worsening swelling, worsening redness, worsening pain, or if there is any redness which begins tracking up towards the eye. Return to the ER if you feel like you are getting worse. I would like you to follow-up with your primary care doctor on Wednesday. My The pain medicine you're taking prescribed as a narcotic. There are several important things you should know about this medicine: 1. This medicine contains Tylenol: It is important that you do not take Tylenol (or acetaminophen) while on this medicine. Tylenol is metabolized by the liver and taking too much Tylenol (acetaminophen) can lay to liver damage and even liver failure. 2. Taking narcotics for too long can lead to physical and mental dependence. Take this medicine only if really needed and in the lowest quantity to achieve pain relief. 3. Do not drink alcohol while on this medicine. Alcohol interacts with narcotics and the combination can be dangerous. 4. Do not drive or operate machinery while on this medicine. 5. Narcotics do cause constipation, so drink plenty of fluids and daily stool softeners. Prescriptions: Clindamycin HCl [Cleocin 300 mg Capsule] 300 mg PO Q6 #28 capsule Oxycodone HCl/Acetaminophen [Percocet 5-325 mg Tablet] 1 - 2 tab PO ASDIR PRN # 25 tablet PRN Reason: Referrals: GRACE SOTO NP [Primary Care Provider] - Follow up as needed
[2017-11-20 16:38] VITALS: BP 130/80
== END 2017-11-20 16:43 | disposition home or self-care (01) ==
LOC: ER 13:52
DX: L03.211 Cellulitis of face (principal); R22.0 Localized swelling, mass and lump, head; I10 Essential (primary) hypertension; E03.9 Hypothyroidism, unspecified; Z86.14 Personal history of Methicillin resistant Staphylococcus aureus infection; F17.210 Nicotine dependence, cigarettes, uncomplicated
CPT/HCPCS: 99283; J3490

== ENCOUNTER 2018-05-21 20:20 | Emergency (ER) | payer MEDICAID ==
[2018-05-21] MEDS ORDERED: DOXYCYCLINE HYCLATE 100 MG TABLET PO ONE (21:52)
[2018-05-21 21:55] VITALS: BP 137/99
--- NOTE | 2018-05-21 21:55 | ER Document Report ---
ED General - General Chief Complaint: Abscess Stated Complaint: SKIN PROBLEM Time Seen by Provider: 05/21/18 20:41 Notes: Patient is a 47-year-old female who presents with an abscess to the left proximal inner arm that is been present for the past 3-4 days. Patient states that there is a dull, throbbing, constant pain to the area. Touching the area or squeezing area worsens the pain. Nothing improves the pain. She states that she has had one similar abscess in the past and a different location. He denies any associated fever or constitutional symptoms. She has not seen her general doctor regarding today's concerns. TRAVEL OUTSIDE OF THE [place] IN LAST 30 DAYS: No - Related Data Allergies/Adverse Reactions: ketorolac [From Toradol] Allergy (Verified 11/20/17 13:54) naproxen [From Naprosyn] Allergy (Verified 11/20/17 13:54) Sulfa (Sulfonamide Antibiotics) Allergy (Verified 11/20/17 13:54) Past Medical History - General Information source: Patient - Social History Smoking Status: Current Every Day Smoker Chew tobacco use (# tins/day): No Frequency of alcohol use: None Drug Abuse: None Lives with: Spouse/Significant other Family History: Reviewed & Not Pertinent Patient has suicidal ideation: No Patient has homicidal ideation: No - Past Medical History Cardiac Medical History: Reports: Hx Hypertension Pulmonary Medical History: Reports: Hx Asthma Renal/ Medical History: Denies: Hx Peritoneal Dialysis GI Medical History: Reports: Hx Ulcer - x 2 Psychiatric Medical History: Reports: Hx Bipolar Disorder, Hx Depression Past Surgical History: Reports: Hx Hysterectomy, Hx Orthopedic Surgery - L knee x3, Hx Urinary Tract Surgery - bladder stimulator insert & removal, mesh - Immunizations Hx Diphtheria, Pertussis, Tetanus Vaccination: No Review of Systems - Review of Systems Notes: Constitutional: Negative for fever. HENT: Negative for sore throat. Eyes: Negative for visual changes. Cardiovascular: Negative for chest pain. Respiratory: Negative for shortness of breath. Gastrointestinal: Negative for abdominal pain, vomiting or diarrhea. Genitourinary: Negative for dysuria. Musculoskeletal: Negative for back pain. Skin: Positive for left arm abscess Neurological: Negative for headaches, weakness or numbness. 10 point ROS negative except as marked above and in HPI. Physical Exam - Vital signs Vitals: Temp Pulse Resp BP Pulse Ox 98.1 F 78 20 131/90 H 100 05/21/18 20:28 05/21/18 20:28 05/21/18 20:28 05/21/18 20:28 05/21/18 20:28 Interpretation: Normal Notes: PHYSICAL EXAMINATION: GENERAL: Well-appearing, well-nourished and in no acute distress. HEAD: Atraumatic, normocephalic. EYES: sclera anicteric, conjunctiva are normal. ENT: Moist mucous membranes. NECK: Normal range of motion LUNGS: Normal work of breathing HEART: 2+ radial pulses bilaterally EXTREMITIES: no pitting or edema. No cyanosis. NEUROLOGICAL: No focal neurological deficits. Moves all extremities spontaneously and on command. PSYCH: Normal mood, normal affect. SKIN: Warm, Dry, normal turgor, there is a 1 x 2 cm abscess on the left proximal inner arm without surrounding erythema Course - Re-evaluation Re-evalutation: 05/21/18 21:52 Patient presents with an abscess to her left proximal upper arm. This area was incised and drained although the patient was unable and unwilling to tolerate completion of the procedure. The patient states that she cannot tolerate any further pain. I was unable to completely explore the cavity to break up additional loculations and explained this to the patient that the procedure was not yet complete. The patient however declined any further progress on the procedure stating that she will return if it worsens. There is no additional purulent drainage expressed on the last compression of the area however aside mention to the patient and concerned that I was unable to completely break up all the loculations that she did not allow for this portion of the procedure be completed. She was placed on doxycycline as she is allergic to trimethoprim sulfamethoxazole. At this time will discharge with return precautions and follow-up recommendations. Verbal discharge instructions given a the bedside and opportunity for questions given. Medication warnings reviewed. Patient is in agreement with this plan and has verbalized understanding of return precautions and the need for primary care follow-up in the next 24-72 hours. - Vital Signs Vital signs: Temp Pulse Resp BP Pulse Ox 97.7 F 81 18 137/99 H 99 05/21/18 21:54 05/21/18 21:54 05/21/18 21:54 05/21/18 21:54 05/21/18 21:54 Procedures - Incision and Drainage Left Arm Type: Simple Anesthetic type: 1% Lidocaine mL's of anesthetic: 5 Blade size: 11 I&D procedure: Betadine prep applied, Chlorprep applied Incision Method: Incision made by scalpel Amount/type of drainage: 3 cc of purulent drainage Discharge - Discharge Clinical Impression: Abscess of left arm Condition: Good Disposition: HOME, SELF-CARE Additional Instructions: You were seen for an abscess that required drainage. Please clean this area with soap and water twice daily and apply a topical antibiotic. Dress the area after each cleaning. Please return if you develop fever, vomiting, the pain at the site worsens, you notice spreading redness from the area, or you have any other symptoms that are concerning to you. Take antibiotics as prescribed. Prescriptions: Doxycycline Hyclate 100 mg PO BID #14 capsule Referrals: GRACE SOTO NP [Primary Care Provider] - Follow up as needed
== END 2018-05-21 22:09 | disposition home or self-care (01) ==
LOC: ER 20:20
PROC: 0H9EXZZ Drainage of Left Lower Arm Skin, External Approach (ICD-10-PCS; principal; 2018-05-21)
DX: L02.414 Cutaneous abscess of left upper limb (principal); F17.210 Nicotine dependence, cigarettes, uncomplicated; I10 Essential (primary) hypertension
CPT/HCPCS: 99283; 10060; J3490

== ENCOUNTER 2018-05-23 21:11 | Emergency (ER) | payer MEDICAID ==
[2018-05-23 21:32] VITALS: BP 116/86
== END 2018-05-23 22:30 | disposition left against medical advice (07) ==
LOC: ER 21:11
DX: Z53.21 Procedure and treatment not carried out due to patient leaving prior to being seen by health care provider (principal)